=== PATIENT | female | born 1970 | race Caucasian/White ===

== ENCOUNTER 2018-02-05 19:48 | Emergency (ER) | payer BC, OTHER ==
[2018-02-05 19:55] VITALS: BMI 24.2
[2018-02-05] MEDS ORDERED: NS 1000 ML 1,000 ML ONE (20:26)
[2018-02-05] MEDS ORDERED: ZOFRAN INJ 4 MG VIAL ONE (20:27)
[2018-02-05] MEDS ORDERED: NS 1000 ML 1,000 ML IV ONE (20:28)
[2018-02-05] MEDS ORDERED: ZOFRAN INJ 4 MG VIAL IVP ONE (20:28)
--- NOTE | 2018-02-05 20:32 | DR.GENAD ---
HPI - PCP Primary Care Physician: nfd - HPI Comment HPI Comment: WORSE TONIGHT. NO FEVER. HISTORY DIVERTICULITIS. - Complaint/Symptoms Chief Complaint Doctors Comments: ABDOMINAL PAIN, N/N SINCE 03 AM TODAY. Chief Complaint:: pt states" my stomach and head hurt really bad. i've been vomiting since 3 am I feel like i may be dehydrated" - Nurses notes reviewed Nurses Notes Review: Yes - Source History Provided: Patient - Mode of Arrival Mode of Arrival: Ambulatory - Timing Onset of Chief Complaint: 02/05/18 Came on: Suddenly - Duration Duration: Constant Duration: Days - Severity Severity: Moderate PMH - PMH Past Medical History: No Past Surgical History: Yes Surgical History: Hysterectomy - Family History History of Family Medical Conditions: Yes Family Medical History: Diabetes Mellitus, Cancer, [place], Coronary Artery Disease, Heart Failure, Hypertension - Social History Type of Tobacco Use: Cigarettes Does any household member use tobacco: Yes Alcohol Use: Occasionally Do you use any recreational Drugs:: No Lives With: Family Lives Where: Home - infectious screening In the last 2 months have you had wt loss of >10#?: NO Have you had fever, night sweats or hemotysis?: No Have you traveled outside the country in the last 6 months?: No Isolation: Standard ROS - Review of Systems Constitutional: Weakness, Fatigue. negative: Chills, Fever Eyes: No Symptoms Reported. negative: Eye Pain, Discharge ENTM: No Symptoms Reported. negative: Ear Pain, Nose Discharge, Nose Congestion , Throat Pain Respiratoy: No Symptoms Reported. negative: Productive Cough, Non-Productive Cough, Short of Breath, Wheezing, Hemoptysis Cardiovascular: No Symptoms Reported. negative: Chest Pain Gastrointestinal/Abdominal: Abdominal Pain, Nausea, Vomiting Genitourinary: No Symptoms Reported. negative: Dysuria, Frequency, Hematuria Neurological: Weakness, Dizziness. negative: Headache Musculoskeletal: Muscle Pain Integumentary: No Symptoms Reported Hematologic/Lymphatic: No Symptoms Reported Endocrine: No Symptoms Reported All Other Systems: Reviewed and Negative PE - Vital Signs Vitals: Temperature 98.4 F Pulse Rate 63 Respiratory Rate 18 Blood Pressure [Left Arm] 168/83 Blood Pressure 147/97 O2 Sat by Pulse Oximetry 98 - General Limitations: No Limitations General Appearance: Alert - Head Head Exam: Normal Inspection - Eyes Eye exam: Normal Appearance - ENT ENT Exam: Normal External Ear Exam External Ear Exam: Normal External Inspection TM/Canal Exam: Bilateral Normal Nose Exam: Normal Nose Exam Mouth Exam: Normal Inspection Throat Exam: Normal Inspection - Neck Neck Exam: Trachea Midline - Chest Chest Inspection: Symmetric Chest Wall Rise - Respiratory Respiratory Exam: Normal Lung Sounds Bilat Respiratory Exam: Bilateral Clear to Auscultation - Cardiovascular Cardiovascular Exam: Regular Rate, Normal Rhythm, Normal Heart Sounds - Abdominal Exam Abdominal Exam: Normal Bowel Sounds, Soft, Tenderness Abdominal Tenderness: Diffuse, Moderate - Extremities Extremities Exam: Normal Inspection - Back Back Exam: Normal Inspection - Neurologic Neurological Exam: Alert, Oriented X3 - Psychiatric Psychiatric Exam: Normal Affect, Normal Mood - Skin Skin Exam: Normal Color [facility] - Additional Information Additional Information Obtained From: Family - Differential Diagnosis Differential Diagnosis: ABDOMINAL PAIN, BOWEL OBST., DIVERTICULITIS, DEHYDRATION Course - Treatment Treatment: SEE ORDERS. - Education/Counseling Education/Counseling: Patient, Family, Education Educated On: Treatment, Diagnosis, Needs for Follow Up ROR - Labs Reviewed Laboratory Results Reviewed?: Yes Result Diagrams: 02/05/18 20:35 02/05/18 20:35 Laboratory: WBC 12.6 X10^3/uL (3.6-10.0) H 02/05/18 20:35 RBC 4.26 X10^6/uL (3.5-5.4) 02/05/18 20:35 Hgb 13.6 g/dL (12.0-16.0) 02/05/18 20:35 Hct 39.3 % (36.0-47.0) 02/05/18 20:35 MCV 92.2 fL (80.0-100.0) 02/05/18 20:35 MCH 31.9 pg (27.0-34.0) 02/05/18 20:35 MCHC 34.6 g/dL (33.0-35.0) 02/05/18 20:35 RDW 12.6 % (11.6-16.5) 02/05/18 20:35 Plt Count 280 X10^3/uL (150.0-450.0) 02/05/18 20:35 MPV 10.1 fL (7.4-11.0) 02/05/18 20:35 Neut % (Auto) 76.5 % (42.0-75.0) H 02/05/18 20:35 Lymph % (Auto) 18.6 % (21.0-51.0) L 02/05/18 20:35 Boy[place] % (Auto) 4.3 % (0.0-13.0) 02/05/18 20:35 Eos % (Auto) 0.1 % (0.9-2.9) L 02/05/18 20:35 Baso % (Auto) 0.5 % (0.2-1.0) 02/05/18 20:35 Neut # (Auto) 9.6 x10^3/uL (2.2-4.8) H 02/05/18 20:35 Lymph # (Auto) 2.3 X10^3/uL (1.3-2.9) 02/05/18 20:35 Boyle # (Auto) 0.5 x10^3/uL (0.3-0.8) 02/05/18 20:35 Eos # (Auto) 0.0 x10^3/uL (0.0-0.2) 02/05/18 20:35 Baso # (Auto) 0.1 X10^3/uL (0.0-0.1) 02/05/18 20:35 Absolute Nucleated RBC 0.1 /100WBC 02/05/18 20:35 Sodium 141 mmol/L (136-145) 02/05/18 20:35 Corrected Sodium 141 mmol/L (136-145) 02/05/18 20:35 Potassium 3.5 mmol/L (3.5-5.1) 02/05/18 20:35 Chloride 104 mmol/L (98-107) 02/05/18 20:35 Carbon Dioxide 29.0 mmol/L (21-32) 02/05/18 20:35 BUN 13 mg/dL (7-18) 02/05/18 20:35 Creatinine 0.75 mg/dL (0.55-1.02) 02/05/18 20:35 Est GFR (MDRD) Af Amer > 60 (>60) 02/05/18 20:35 Est GFR (MDRD) Non-Af > 60 (>60) 02/05/18 20:35 Glucose 111 mg/dL (65-99) H 02/05/18 20:35 Calcium 8.3 mg/dL (8.5-10.1) L 02/05/18 20:35 Corrected Calcium TNP 02/05/18 20:35 Total Bilirubin 0.60 mg/dL (0.2-1.0) 02/05/18 20:35 AST 12 Units/L (15-37) L 02/05/18 20:35 ALT 11 Units/L (12-78) L 02/05/18 20:35 Alkaline Phosphatase 79 Units/L (46-116) 02/05/18 20:35 Total Protein 7.3 g/dL (6.4-8.2) 02/05/18 20:35 Albumin 4.0 g/dL (3.4-5.0) 02/05/18 20:35 Globulin 3.3 g/dL (2.5-4.5) 02/05/18 20:35 Albumin/Globulin Ratio 1.2 Ratio (1.1-2.1) 02/05/18 20:35 Amylase 30 Units/L (25-115) 02/05/18 20:35 Lipase 50 Units/L (73-393) L 02/05/18 20:35 Specimen Type Clean catch urine 02/05/18 20: Urine Color [place] (YELLOW) 02/05/18 20: Urine Appearance Clear (CLEAR) 02/05/18: Urine pH 6.5 (5.0 - 8.0) 02/05/18 20: Ur Specific [place] 1.015 (1.000-1.030) 02/05/18 20: Urine Protein 2+ (NEGATIVE) 02/05/18: Urine Glucose (UA) Negative (NEGATIVE) 02/05/18: Urine Ketones 4+ (NEGATIVE) 02/05/18 20: Urine Occult Blood 5+ (NEGATIVE) 02/05/18 20: Urine Nitrite Negative (NEGATIVE) 02/05/18 20: Urine Bilirubin 1+ (NEGATIVE) 02/05/18: Urine Urobilinogen 1+ (NORMAL) 02/05/18 20: Ur Leukocyte Esterase 1+ (NEGATIVE) 02/05/18 20: Urine RBC Tntc /HPF (NONE SEEN) 02/05/18 20: Urine WBC 0-2 /HPF (NONE SEEN) 02/05/18 20: Ur Squamous Epith Cells Rare /HPF (NEGATIVE) 02/05/18 20:29 Urine Bacteria Negative /HPF (NEGATIVE) 02/05/18 20:29 Ur Culture Indicated? No/not indicated 02/05/18 20:29 H. pylori IgG Antibody Negative (NEGATIVE) 02/05/18 20:35 - XRAY XRAY Interpreted by: Radiologist XRAY Findings: REPORT DISCUSS WITH PATIENT. - Diagnosis Discharge Problem: Gastroenteritis, Dehydration Abdominal pain Qualifiers: Abdominal location: generalized Qualified Code(s): R10.84 - Generalized abdominal pain - Discharge Plan Disposition: HOME, SELF-CARE Condition: Stable Prescriptions: Ondansetron [Zofran ODT 8 mg] 8 mg PO Q8H PRN #15 tab PRN Reason: Nausea/Vomiting Tramadol HCl 50 mg PO Q8H PRN #15 tablet PRN Reason: - Follow ups/Referrals Follow ups/Referrals: NFD,None [Primary Care Provider] - 3 days - Instructions Instructions: Viral Gastroenteritis, Adult, [id number], Dehydration, Adult, [id number], Abdominal Pain, Adult, [id number] Additional Instructions: RETURN TO ED IF WORSE.
[2018-02-05 20:39] LABS: BILIRUBIN,URINE 1+ (NEGATIVE); BLOOD/HEMOGLOBIN,URINE 5+ (NEGATIVE); GLUCOSE, URINE NEGATIVE (NEGATIVE); KETONES,URINE 4+ (NEGATIVE); LEUKOCYTE ESTERASE ,URINE 1+ (NEGATIVE); NITRITES,URINE NEGATIVE (NEGATIVE); PH,URINE 6.5 (5.0 - 8.0); PROTEIN,URINE 2+ (NEGATIVE); UROBILINOGEN,URINE 1+ (NORMAL)
[2018-02-05 20:45] LABS: APPEARANCE,URINE CLEAR (CLEAR); COLOR,URINE AMBER (YELLOW)
[2018-02-05 20:46] LABS: BACTERIA,URINE NEGATIVE /HPF (NEGATIVE); RBC,URINE TNTC /HPF (NONE SEEN); SQUAMOUS EPITHELIAL CELL,UR RARE /HPF (NEGATIVE)
[2018-02-05 21:21] LABS: BASOPHILS # (AUTO) 0.1 X10^3/uL (0.0-0.1); BASOPHILS % (AUTO) 0.5 % (0.2-1.0); EOSINOPHILS % (AUTO) 0.1 % (0.9-2.9); HEMATOCRIT 39.3 % (36.0-47.0); HEMOGLOBIN 13.6 g/dL (12.0-16.0); LYMPHOCYTES # (AUTO) 2.3 X10^3/uL (1.3-2.9); LYMPHOCYTES % (AUTO) 18.6 % (21.0-51.0); MEAN CORPUSCULAR HEMOGLOBIN 31.9 pg (27.0-34.0); MEAN CORPUSCULAR HGB CONC 34.6 g/dL (33.0-35.0); MEAN CORPUSCULAR VOLUME 92.2 fL (80.0-100.0); MEAN PLATELET VOLUME 10.1 fL (7.4-11.0); MONOCYTES # (AUTO) 0.5 x10^3/uL (0.3-0.8); MONOCYTES % (AUTO) 4.3 % (0.0-13.0); NEUTROPHILS # (AUTO) 9.6 x10^3/uL (2.2-4.8); NEUTROPHILS % (AUTO) 76.5 % (42.0-75.0); PLATELET COUNT 280 X10^3/uL (150.0-450.0); RED BLOOD COUNT 4.26 X10^6/uL (3.5-5.4); RED CELL DISTRIBUTION WIDTH 12.6 % (11.6-16.5); WHITE BLOOD COUNT 12.6 X10^3/uL (3.6-10.0)
[2018-02-05] MEDS ORDERED: MORPHINE SULFATE INJ 2 MG INJ IVP ONE (21:26)
[2018-02-05 21:32] LABS: ALANINE AMINOTRANSFERASE 11 Units/L (12-78); ALKALINE PHOSPHATASE 79 Units/L (46-116); AMYLASE 30 Units/L (25-115); ASPARTATE AMINO TRANSFERASE 12 Units/L (15-37); BLOOD UREA NITROGEN 13 mg/dL (7-18); CALCIUM 8.3 mg/dL (8.5-10.1); CHLORIDE 104 mmol/L (98-107); COR NA(FOR HYPERGLY) 141 mmol/L (136-145); CREATININE 0.75 mg/dL (0.55-1.02); LIPASE 50 Units/L (73-393); SODIUM 141 mmol/L (136-145); TOTAL PROTEIN 7.3 g/dL (6.4-8.2); eGFR BLACK RACES > 60 (>60); eGFR NON BLACK RACES > 60 (>60)
--- NOTE | 2018-02-05 22:17 | CT ---
CT abdomen and pelvis without contrast Indication: Abdominal pain, vomiting Comparison: 07/17/2016 Technique: CT images of the abdomen and pelvis were obtained without contrast. Automatic exposure con trol was utilized. Findings: Aside from minimal dependent atelectasis, the lung bases are clear. No acute skeletal abnor mality. Evaluation is limited without contrast. Accounting for this, the liver, gallbladder, spleen, stomach, duodenum, pancreas, and kidneys are unremarkable. Bilateral adrenal adenomas are unchanged. No thick ening or dilatation of the lower GI tract observed. The appendix is normal. The uterus is not identif ied. The urinary bladder and rectum are unremarkable. No free fluid or adenopathy. Impression: No acute process to account for patient's symptoms. Reported By:
[2018-02-05] MEDS ORDERED: MORPHINE SULFATE INJ 2 MG INJ ONE (22:32)
[2018-02-05 22:55] VITALS: BP 168/83
== END 2018-02-05 22:49 | disposition home or self-care (01) ==
LOC: ER 20:13
DX: K52.89 Other specified noninfective gastroenteritis and colitis (principal); R10.84 Generalized abdominal pain; E86.0 Dehydration
CPT/HCPCS: 36415; 74176; 80053; 81001; 82150; 83690; 85025; 86677; 96365; 96374; 96375; 99283; 99284; A4222; J2270; J2405